=== PATIENT | male | born 1960 | race African-American/Black ===

== ENCOUNTER → 2024-11-12 14:33 | Outpatient (REF) | payer MEDICARE, OTHER, SELFPAY | LOC: PAVMRI 14:33 | PROVIDERS: ATTENDING PHYSICIAN Specialist; FAMILY PHYSICIAN Family Medicine | DX: R97.20 Elevated prostate specific antigen [PSA] (principal) | CPT/HCPCS: 72197; A9575 ==

== ENCOUNTER 2025-04-04 16:52 | Emergency (ER) | payer MEDICARE, OTHER, SELFPAY ==
[2025-04-04 16:59] VITALS: BP 160/106
--- NOTE | 2025-04-04 17:28 | ED.GENMED ---
History of Present Illness
General
Chief Complaint: Urinary Symptoms
Source: patient
Time Seen by Provider: 04/04/25 17:13
History of Present Illness
History of Present Illness:
64-year-old male with a known history of BPH, but does not take medication for presents emergency department with complaints of inability to fully urinate since approximately 4 AM associated with the urge to urinate and bladder fullness. This is
making him uncomfortable. He denies fever, chills, nausea, vomiting, chest pain, shortness of breath, back pain, groin pain. He denies hematuria or dysuria but did notice urgency and frequency starting yesterday. Of note, patient was recently
diagnosed with a sinus infection and took Jenny-[place] severe cold last night, and was taking Mucinex before that. He is also in the midst of a prep for colonoscopy planned for tomorrow which he just canceled. When asked about back pain he notes
mild right sided back discomfort, without exacerbating relieving factors, not abrupt in onset, without radiation. No leg swelling or pain.
Past History
Past History
ED Past Medical History: HTN, Hypercholesterolemia, NIDDM and Other (BPH)
Social History
Tobacco: Non-smoker
Alcohol: None
Drug: None
Personal:
Living: with family
Employment: Employed
Phy Exam
Physical Exam
Physical Exam:
GENERAL: Alert , in no apparent distress
EYE: pupils equal and reactive
NECK: Supple, no significant adenopathy.
ENT: o/p clr, mmm.
CARDIAC: Regular rate and rhythm .
LUNGS: Clear breath sounds bilaterally, no acute respiratory distress, no wheezes/rales/rhonchi
ABDOMEN: Soft, mild suprapubic tenderness, no r/g, no cvat
NEUROLOGICAL: Alert and oriented, no focal neuro deficits
SKIN: Warm and dry, skin intact.
MUSCULOSKELETAL: No edema, well perfused.
PSYCH: Normal and appropriate interaction.
: no bleeding or lesions noted
Course
Orders/Labs/Results
Orders:
Orders
04/04/25 17:28
Bladder Scan- Treatment ONCE
Herron Placement- Treatment ONCE
Reason for insertion: Acute Retention
Tamsulosin [Flomax] 0.4 mg PO NOW STA
US Kidneys and US Bladder [US Renal With Bladder] Urgent
Comment:
Reason For Exam: flank pain, retention
04/04/25 18:22
Urinalysis Reflex To Culture Urgent
Date Specimen was Collected: 04/04/25
Time Specimen was Collected: 17:38
Urine Microscopic Reflex Cult Urgent
Abnormal Lab Results
04/04/25
18:22
Urine Ketones 2+ A
(Negative)
Ur Occult Blood Reflex 4+ A
(Negative)
Urine RBC >100 A /HPF
(0-2)
Urine Albumin (Reflex) 2+ A
(Neg - Trace)
Vital Signs
Initial and Last Documented VS:
Initial Vital Signs
Temp Pulse Resp BP Pulse Ox
98.6 F 86 20 160/106 97
04/04/25 16:59 04/04/25 16:59 04/04/25 16:59 04/04/25 16:59 04/04/25 16:59
Last Documented Vital Signs
Temp Pulse Resp BP Pulse Ox
98.6 F 117 27 161/87 96
04/04/25 16:59 04/04/25 19:15 04/04/25 19:15 04/04/25 19:00 04/04/25 19:15
*Pulse Oximetry
SaO2: 97
Oxygen Mode of Delivery: Room air
Patient hypoxic: no
*Critical Care Note
Total Time (30-74mins, 75-104mins- exclusive of procedures): Not Applicable
Update Note
Update Note:
Patient presents to the Emergency Department with inability to urinate
Number and Complexity of Problems Addressed at the Encounter
� Chronic conditions affecting care:
� Acute Exacerbation and/or Progression of Chronic Illness:
� Differential Diagnosis includes: But not limited to medication effect, BPH effect, UTI, kidney stone, etc. etc.
Amount and/or Complexity of Data to be Reviewed and Analyzed
� I performed an independent evaluation of and my interpretation is:
EKG:
CT:
Xrays:
Laboratory Studies:ua with hematuria, no suggsetion of infx
Other:us Mild asymmetric distention of the right intrarenal collecting system and right renal pelvis.
2. Herron catheter in the urinary bladder.
� Review of other/old records reveals:
� Clinical information was obtained by an independent historian:
� Prescriptions/Medications Considered but not given:
� Further testing considered but not performed:
Risk of Complications and/or Morbidity or Mortality of Patient Management
� Social determinants of health affecting care:
� Discussion with other providers (PCP, Hospitalists, Consultants, etc):
� Escalation of care including admission/observation vs risk of discharge considered: Bladder scan positive for retention, Herron catheter placed, clear urine flowing, patient feels remarkably better without any complaints at this
time. Ultrasound noted with asymmetric distention of the right collecting system and pelvis, this will need follow-up with urology, no stone seen. Patient given copy of this ultrasound report and advised to follow-up with urology concerning
ultrasound, microscopic hematuria, and Herron.
ED Attending Note
-
Portions of this chart may have been created with voice recognition software.� Occasional wrong word or��sound alike� substitutions may have occurred due to the inherent limitations of voice recognition software.
Discharge Plan
Departure
Patient Disposition: Home (Routine Discharge)
Date of Disposition: 04/04/25
Time of Disposition: 20:26
Patient with high blood pressure during this ER visit?: Yes
Condition: Good
Discharge Problem:
Acute urinary retention
Instructions: How to Care for Your Herron Catheter, Male, Blood in the Urine (Hematuria), Adult (DC), Urinary retention (DC), BLOOD PRESSURE
Prescriptions:
New
tamsulosin [Flomax] 0.4 mg capsule
0.4 mg PO DAILY Qty: 30 0RF
No Action
prednisone 10 MG tablet
10 mg PO .TAPER Qty: 30 0RF
Rx Instructions:
Take 88ezh2mble, 99bii9ddyr, 19mgm2tabk, 72frq7sdgo.
Referrals:
Todd Kwon MD [Active, Urology] - Follow up in 2-3 days
Cale Baltazar DO [Family Provider, Family Practice]
Activity Restrictions/Additional Instructions:
YOU SHOULD SEE THE UROLOGIST WITHIN THE NEXT 2 TO 3 DAYS FOR FURTHER MANAGEMENT OF YOUR HERRON CATHETER AND EVALUATION OF YOUR FINDINGS HERE WHICH INCLUDES BLOOD IN YOUR URINE AND INABILITY TO URINATE. IF YOU DEVELOP FEVER, CHILLS, VOMITING,
SWELLING, YOUR CATHETER DOES NOT DRAIN, ABDOMINAL OR PELVIC PAIN, OR OTHER WORRISOME SIGNS, PLEASE RETURN TO THE ER IMMEDIATELY!
Interventions
Interventions:
*Risk Screen - Suicide Last Done: 04/04/25 16:59
*General Assessment Last Done: 04/04/25 16:59
*Neglect/Abuse Screening Last Done: 04/04/25 16:59
*Nursing Disposition Last Done: 04/04/25 21:09
ED-Male Genitourinary Assessment Last Done: 04/04/25 18:01
Discharge Date and Time
Discharge Date/Time: 04/04/25 21:15
Print Language: CROATIAN
[2025-04-04 17:43] VITALS: BP 156/87
[2025-04-04] MEDS: FLOMAX 0.4 MG PO (17:51)
[2025-04-04 18:00] VITALS: BP 161/85
[2025-04-04 18:36] LABS: Urine Character Slightly Cloudy (Clear)
[2025-04-04 18:46] LABS: Urine Red Blood Cell >100 /HPF (0-2); Urine Squamous Cell 0-2 /LPF (Few)
[2025-04-04 18:47] LABS: Urine White Cell 0-2 /HPF (0-5)
[2025-04-04 19:00] VITALS: BP 161/87
== END 2025-04-04 21:15 | disposition home or self-care (01) ==
LOC: EMR 16:52
PROVIDERS: EMERGENCY PHYSICIAN Emergency Medicine; FAMILY PHYSICIAN Family Medicine
DX: N40.1 Benign prostatic hyperplasia with lower urinary tract symptoms (principal); R33.8 Other retention of urine; I10 Essential (primary) hypertension; E78.00 Pure hypercholesterolemia, unspecified; E11.9 Type 2 diabetes mellitus without complications
CPT/HCPCS: 51702; 99284; 76770; 81003; 81015

== ENCOUNTER 2025-04-14 13:30 | Inpatient (IN) | payer MEDICARE, OTHER, SELFPAY ==
[2025-04-13 20:57] VITALS: BP 195/116
--- NOTE | 2025-04-13 22:30 | ED.GENMED ---
History of Present Illness
<MARILOU Waldrop - Last Filed: 04/14/25 01:32>
General
Chief Complaint: Urinary Symptoms
Source: patient
Exam Limitations: none
Time Seen by Provider: 04/13/25 22:19
Nursing documentation reviewed up to this point in time: agreed with
History of Present Illness
History of Present Illness:
Patient is a 64-year-old male who presents to the ER with difficulty voiding. As documented patient has a history of known BPH and was seen here in the ER April 04 requiring catheter. He was seen by urology today and had coppola removed and has not
been able to void normalized since. He was having episodes of incontinence of blood. He is not on blood thinners. Denies any fevers.
Past History
<MARILOU Waldrop - Last Filed: 04/14/25 01:32>
Past History
ED Past Medical History: HTN, Hypercholesterolemia, NIDDM and Other (BPH)
Social History
Tobacco: Non-smoker
Alcohol: None
Drug: None
Personal:
Living: with family
Employment: Employed
Phy Exam
<MARILOU Waldrop - Last Filed: 04/14/25 01:32>
General Physical Exam
General Presentation: no apparent distress
General age: appears stated age
General Skin: warm and dry
General Habitus: normal
General Mental: alert
General Hydration: appears well hydrated
Gastrointestinal Exam
Gastrointestinal Exam: soft and other (Suprapubic tenderness)
Neurological Exam
Neurological Exam: alert and oriented x3
Musculoskeletal Exam
Musculoskeletal Exam: full ROM
Skin Exam
Skin Exam: normal color and warm/dry
Psychiatric Exam
Psychiatric Exam: normal mood/affect
Course
<MARILOU Waldrop - Last Filed: 04/14/25 01:32>
Orders/Labs/Results
Orders:
Orders
04/13/25 21:57
Bladder Scan- Treatment ONCE
04/13/25 22:02
Coppola Placement- Treatment ONCE
Reason for insertion: Acute Retention
04/14/25 00:03
IV Insert/Care/Rem.- Treatment PRN
0.9% Sodium Chloride 1000 ml [Nss] 1,000 ml IV BOLUS
04/14/25 00:15
Complete Blood Count/With Diff Urgent
Comprehensive Metabolic Panel Urgent
Abnormal Lab Results
04/14/25
00:15
WBC 12.0 H 10^3/uL
(4.8-10.8)
RBC 3.57 L 10^6/uL
(4.70-6.10)
Hgb 10.6 L g/dL
(13.0-18.0)
Hct 33.5 L %
(39.0-52.0)
MCHC 31.6 L g/dL
(33.0-37.0)
Abs Immat Gran (auto) 0.2 H 10^3/uL
(0-0.05)
Absolute Neuts (auto) 10.5 H 10^3/uL
(1.4-6.5)
Absolute Lymphs (auto) 0.8 L 10^3/uL
(1.2-3.4)
Immature Gran % 1.8 H %
(0-0.5)
Neutrophils % 87.5 H %
(42.2-75.2)
Lymphocytes % 6.3 L %
(20.5-51.1)
Glucose 225 H mg/dl
(70-99)
04/14/25 00:15
04/14/25 00:15
Vital Signs
Initial and Last Documented VS:
Initial Vital Signs
Temp Pulse Resp BP Pulse Ox
98.5 F 110 16 195/116 97
04/13/25 20:57 04/13/25 20:57 04/13/25 20:57 04/13/25 20:57 04/13/25 20:57
Last Documented Vital Signs
Temp Pulse Resp BP Pulse Ox
98.5 F 88 18 134/75 99
04/13/25 20:57 04/14/25 01:12 04/14/25 01:12 04/14/25 01:12 04/14/25 01:12
Regional Operations Director consulted with Physician
Regional Operations Director consulted with physician?: Yes
Name of Physician Consulted: Tracy
<Dary Molina MD - Last Filed: 04/14/25 01:16>
Orders/Labs/Results
Orders:
Orders
04/13/25 21:57
Bladder Scan- Treatment ONCE
04/13/25 22:02
Coppola Placement- Treatment ONCE
Reason for insertion: Acute Retention
04/14/25 00:03
IV Insert/Care/Rem.- Treatment PRN
0.9% Sodium Chloride 1000 ml [Nss] 1,000 ml IV BOLUS
04/14/25 00:15
Complete Blood Count/With Diff Urgent
Comprehensive Metabolic Panel Urgent
Abnormal Lab Results
04/14/25
00:15
WBC 12.0 H 10^3/uL
(4.8-10.8)
RBC 3.57 L 10^6/uL
(4.70-6.10)
Hgb 10.6 L g/dL
(13.0-18.0)
Hct 33.5 L %
(39.0-52.0)
MCHC 31.6 L g/dL
(33.0-37.0)
Abs Immat Gran (auto) 0.2 H 10^3/uL
(0-0.05)
Absolute Neuts (auto) 10.5 H 10^3/uL
(1.4-6.5)
Absolute Lymphs (auto) 0.8 L 10^3/uL
(1.2-3.4)
Immature Gran % 1.8 H %
(0-0.5)
Neutrophils % 87.5 H %
(42.2-75.2)
Lymphocytes % 6.3 L %
(20.5-51.1)
Glucose 225 H mg/dl
(70-99)
04/14/25 00:15
04/14/25 00:15
Vital Signs
Initial and Last Documented VS:
Initial Vital Signs
Temp Pulse Resp BP Pulse Ox
98.5 F 110 16 195/116 97
04/13/25 20:57 04/13/25 20:57 04/13/25 20:57 04/13/25 20:57 04/13/25 20:57
Last Documented Vital Signs
Temp Pulse Resp BP Pulse Ox
98.5 F 88 18 134/75 99
04/13/25 20:57 04/14/25 01:12 04/14/25 01:12 04/14/25 01:12 04/14/25 01:12
<MARILOU Waldrop - Last Filed: 04/14/25 01:32>
MDM/Problems Addressed
MDM/Problems Addressed:
As documented patient is a 64-year-old male who had Coppola catheter removed by urology today and has not been able to void normally since. He has had episodes of incontinence of blood. Three-way Coppola catheter was inserted with gross hematuria CBI
in progress.
Will require admission. Patient is not on blood thinners hemoglobin 10.6, no prior.
Case reviewed with ER physician who evaluated patient.
pt is afebrile
Chronic conditions affecting care:
niddm
<MARILOU Waldrop - Last Filed: 04/14/25 01:32>
*Pulse Oximetry
SaO2: 98
Oxygen Mode of Delivery: Room air
Patient hypoxic: no
*Critical Care Note
Total Time (30-74mins, 75-104mins- exclusive of procedures): Not Applicable
ED Attending Note
<MARILOU Waldrop - Last Filed: 04/14/25 01:32>
-
Portions of this chart may have been created with voice recognition software.� Occasional wrong word or��sound alike� substitutions may have occurred due to the inherent limitations of voice recognition software.
<Dary Molina MD - Last Filed: 04/14/25 01:16>
ED Attending Note
Patient seen and examined by attending physician: Yes
I performed the substantive portion of visit, reviewed & personally made and approve the management plan that is documented in note by myself or PAVITHRA.: Yes
ED Attending Note:
Patient appears nontoxic and well. He is fully alert and awake. Heart sounds regular lungs are clear. Urine is fruit-punch colored at this time.
Discharge Plan
Departure
Patient Disposition: Admit
Date of Disposition: 04/14/25
Time of Disposition: 01:31
Admit to: Med/Surg
Admit to doctor: hospitalist
Presentation/result/management discussed w/ accepting MD/DO: Hospitalist
Patient with high blood pressure during this ER visit?: Yes
Condition: Fair
Covid-19: Not Applicable
Discharge Problem:
Acute urinary retention, Hematuria
Prescriptions:
No Action
tamsulosin [Flomax] 0.4 mg capsule
0.4 mg PO DAILY Qty: 30 0RF
celecoxib 200 mg Capsule
200 mg PO DAILY
metformin 500 mg Tablet
500 mg PO BID
losartan 100 mg Tablet
100 mg PO DAILY
rosuvastatin 10 mg Tablet
10 mg PO DAILY
Referrals:
Cale Baltazar DO [Family Provider, Family Practice]
Interventions
Interventions:
*Risk Screen - Suicide Last Done: 04/13/25 20:57
*General Assessment Last Done: 04/13/25 21:44
*Neglect/Abuse Screening Last Done: 04/13/25 20:57
*ED- Fall Risk Assessment Last Done: 04/13/25 21:44
*ED COVID-19 Vaccine History Last Done: 04/13/25 21:44
*ED Influenza Vaccine History Last Done: 04/13/25 21:44
ED-Male Genitourinary Assessment Last Done: 04/13/25 21:44
Discharge Date and Time
Print Language: MALDIVIAN
[2025-04-13 23:28] VITALS: BP 179/102
[2025-04-14] VITALS (7 sets, daily range): BP systolic 134–163; BP diastolic 75–92; BMI 28.9
[2025-04-14 00:37] LABS: Hematocrit 33.5 % (39.0-52.0); Hemoglobin 10.6 g/dL (13.0-18.0); Mean Corp Hgb Conc. 31.6 g/dL (33.0-37.0); Mean Corpuscular Volume 93.8 fL (80.0-94.0); Nucleated Red Blood Cells % 0 % (-); Platelet Count 362 10^3/uL (130-400); Red Cell Dist. Width 12.1 % (11.5-14.5)
[2025-04-14 00:42] LABS: ALT (SGPT) 25 U/L (0-50); AST (SGOT) 28 U/L (17-59); Albumin 4.2 g/dl (3.5-5.0); Alkaline Phosphatase 70 U/L (38-126); Blood Urea Nitrogen 12 mg/dl (9-20); Calcium 9.6 mg/dl (8.4-10.2); Carbon Dioxide 27 mmol/L (22-30); Chloride 103 mmol/L (98-107); Estimated Creatinine Clearance 86 ml/min; Glucose 225 mg/dl (70-99); Sodium 139 mmol/L (135-145); Total Protein 7.8 g/dl (6.3-8.2); eGFR > 60.00
[2025-04-14 00:48] LABS: Potassium 4.4 mmol/L (3.5-5.1)
[2025-04-14] MEDS: NSS 1000 IV (01:13)
--- NOTE | 2025-04-14 01:33 | HPS.HSE ---
Family Physician
-
Family Physician: Cale Baltazar
Chief Complaint
-
Difficulty voiding hematuria
History of Present Illness
This 64-year-old with past medical history significant for hypertension, wsy-xedzrbv-jymugzyki diabetes, hyperlipidemia, BPH who presents to the emergency department with difficulty voiding and hematuria.
Patient urinary retention 2 weeks ago and had a urinary catheter placed. Unknown if he had BPH at that time but patient was at URI and was on Z-Alejandro and OTC anticongestive and which likely exacerbated his urinary retention. He was evaluated 1 week
afterwards and the urinary catheter was capped. He was supposed to start Flomax and then the following day have a voiding evaluation. He had a voiding trial on Saturday and was initially able to urinate freely after catheter removal. He returned
to the clinic in the afternoon for follow-up on an ultrasound which shows that the bladder was not entirely emptying. Was then told to coming in the following day for further evaluation. After arriving home he started noticing some hematuria and
then slight back discomfort. He denied any nausea or vomiting. He denied any fevers or chills. He then started noticing some difficulty with urination and then incontinence. Three-way urinary catheter was placed in the emergency department.
He was afebrile with a temp of 98.5 in the ED, blood pressure 130/75 pulse of 88 and he was satting 99% on room air.
White count was 12 hemoglobin 10.6 and platelet of 362. Electrolytes BUN and creatinine are normal.
Medical History
Past Medical History
Past Medical History: Reports HTN, Hypercholesterolemia, NIDDM and Other (BPH, urinary retention)
Past Surgical History: Reports Orthopedic (Right hip arthroplasty)
Social History
Tobacco: Non-smoker
Alcohol: None
Drug: None
Family History
Family History: Not pertinent
Allergies / Home Medications
Allergies reflects when Allergies were last updated in [employer]
Home Medications with original date entered in [employer]
Allergy/Medication List:
Allergies
Allergy/AdvReac Type Severity Reaction Status Date / Time
aspirin Allergy slight Verified 04/04/25 17:03
tremors
Home Medications
tamsulosin 0.4 mg capsule (Flomax) 0.4 mg PO DAILY #30 caps 04/04/25
celecoxib 200 mg capsule 200 mg PO DAILY 04/14/25
losartan 100 mg tablet 100 mg PO DAILY 04/14/25
metformin 500 mg tablet 500 mg PO BID 04/14/25
rosuvastatin 10 mg tablet 10 mg PO DAILY 04/14/25
Review of Systems
-
Constitutional: Reports No Symptoms
EENT: Reports No Symptoms
Respiratory: Reports No Symptoms
Cardiac: Reports No Symptoms
Abdomen/GI: Reports No Symptoms
: Reports Incontinence and Bleeding
Musculoskeletal: Reports No Symptoms
Skin: Reports No Symptoms
Neurological: Reports No Symptoms
Endocrine: Reports No Symptoms
Hematologic/Lymphatic: Reports No Symptoms
Psych: Reports No Symptoms
Physical Exam
Vital Signs
Vital Signs
Temp Pulse Resp BP Pulse Ox
98.5 F 88 18 134/75 99
04/13/25 20:57 04/14/25 01:12 04/14/25 01:12 04/14/25 01:12 04/14/25 01:12
Physical Exam
General: Well Developed, Well Nourished and No Apparent Distress
HEENT: NormoCephalic, Moist mucous membranes and Atraumatic
Respiratory: Clear
Cardiac: S1/S2 and Regular Rhythm; No Murmur or Rub
GI: Soft, Non Tender, Non Distended and Normal Bowel Sounds; No Organomegaly
Rectal: Deferred by Provider
Genito-urinary: Bloody Urine and Continuous Bladder Irrigation
Musculoskeletal: No Clubbing, No Cyanosis and No Edema
Skin: No Rash
Neuro: AO x 3 and Nonfocal/grossly intact
Laboratory Results
-
04/14/25 00:15
04/14/25 00:15
Laboratory Results
Total Bilirubin 0.4 mg/dl (0.2-1.3) 04/14/25 00:15
AST 28 U/L (17-59) 04/14/25 00:15
ALT 25 U/L (0-50) 04/14/25 00:15
Alkaline Phosphatase 70 U/L (38-126) 04/14/25 00:15
Data Reviewed
-
Lab Data: Labs Reviewed by me
Impression/Plan
-
IMPRESSION:
This is a 64-year-old with past medical history significant for hypertension, diabetes and hyperlipidemia who had recent urinary retention in the setting of BPH status post indwelling cath for about 2 weeks, status post voiding trial and catheter
removal today with subsequent difficulty with urination and hematuria. Gross hematuria in the emergency department. He is not obstructed right now. He has abdominal pain. He had a three-way cath placed and he is on CBI.
PLAN:
Hematuria -likely in the setting of indwelling catheter. He is not on any blood thinners. He has no coagulopathy. No history of any bladder cancer or mass.
-Admit to MedSurg
-Continue blood aggregation until clearance
-No blood thinners for now
-Serial examination for retention
- trend h/h
- d/w urology, Urine is clearing. Can d/c CBI, leave coppola and d/c to follow up urology in clinic today if stable.
- Continue tamsulosin
Diabetes�stable
-Continue metformin
-Sliding scale insulin
Hypertension
-continue losartan
Hyperlipidemia
-Continue rosuvastatin
DVT prophylaxis�SCDs
CODE STATUS�full code
--- NOTE | 2025-04-14 06:24 | PTCARENOTE ---
0245-received pt from ED with CBI infusing with #3 up. coppola draining punch colored urine with small clots noted. pt and oriented to room, POC and call lara. SCD's placed on pt. admission assessment completed.
[2025-04-14 07:24] LABS: Hematocrit 30.8 % (39.0-52.0); Hemoglobin 9.7 g/dL (13.0-18.0); Mean Corp Hgb Conc. 31.5 g/dL (33.0-37.0); Mean Corpuscular Volume 93.1 fL (80.0-94.0); Platelet Count 342 10^3/uL (130-400); Red Cell Dist. Width 12.2 % (11.5-14.5)
[2025-04-14 07:44] LABS: Blood Urea Nitrogen 11 mg/dl (9-20); Calcium 9.5 mg/dl (8.4-10.2); Carbon Dioxide 28 mmol/L (22-30); Chloride 104 mmol/L (98-107); Estimated Creatinine Clearance 86 ml/min; Glucose 131 mg/dl (70-99); Potassium 4.6 mmol/L (3.5-5.1); Sodium 139 mmol/L (135-145); eGFR > 60.00
[2025-04-14] MEDS: CRESTOR 10 MG PO (08:25)
[2025-04-14] MEDS: COZAAR 100 MG PO (08:25)
[2025-04-14] MEDS: FLOMAX 0.4 MG PO (08:25)
[2025-04-14] MEDS: CELEBREX 200 MG PO (08:26)
[2025-04-14] MEDS: GLUCOPHAGE 500 MG PO ×2 (08:39→20:14)
--- NOTE | 2025-04-14 11:40 | CM ---
CM reviewed chart, patient seen bedside with , initial assessment completed.
Patient is a 64-year-old male who presents to the ER with difficulty voiding.
Patient resides with his in a multiple story home, three steps to enter.
Patient is independent with ADLS/IADLS, denies use of DME.
Patient has had VN in past after hip replacement, denies SNF hx.
PCP Cale Baltazar, Pharmacy [facility], has coverage through [place].
OBS form reviewed verbally, provided with copy, placed in chart.
CM will continue to follow for all d/c planning needs.
Plan; home with , no needs anticipated
--- NOTE | 2025-04-14 13:46 | W.PN.HOSP.TC ---
Today's Communication/Plan
-
Continuous bladder irrigation
Assessment / Plan
Assessment / Plan
Impression
This is a 64-year-old with past medical history significant for hypertension, diabetes and hyperlipidemia who had recent urinary retention in the setting of BPH status post indwelling cath for about 2 weeks, status post voiding trial and catheter
removal today with subsequent difficulty with urination and hematuria. Gross hematuria in the emergency department. He is not obstructed right now. He has abdominal pain. He had a three-way cath placed and he is on CBI.
Hematuria
BPH with bladder outlet obstruction
Hematuria likely secondary to Salas catheter trauma
Patient is not on any antiplatelet or anticoagulation prior to admission.
Continue CBI.
Monitor closely for possible infection (show noted elevated white count)
Continue Flomax
Diabetes�stable
-Continue metformin
-Sliding scale insulin
Hypertension
-continue losartan
Hyperlipidemia
-Continue rosuvastatin
Anticipated Discharge: 24 - 48 hours
Subjective/Interval History
-
Date of Service: April 14, 2025
Objective Data
-
Labs:
Laboratory Results
04/14/25
06:49
WBC 13.5 H
Hgb 9.7 L
Hct 30.8 L
Plt Count 342
Sodium 139
Potassium 4.6
Chloride 104
Carbon Dioxide 28
BUN 11
Creatinine 0.9
Glucose 131 H
Calcium 9.5
Vital Signs:
Vital Signs
Temp Pulse Resp BP Pulse Ox
98.1 F 93 16 153/90 98
04/14/25 07:25 04/14/25 07:25 04/14/25 07:25 04/14/25 07:25 04/14/25 07:25
I&O
04/13/25 04/14/25 04/15/25
06:59 06:59 06:59
Output Total 3049 / 305
Balance -3050 / -3049
Physical Exam
-
General: Well Developed and No Apparent Distress
HEENT: Normocephalic, Atraumatic and Moist Mucous Membranes
Respiratory: Clear to Auscultation
Cardiac: Regular Rhythm and S1/S2; Negative Murmur, Rub or Gallop
GI: Soft, Nontender, Nondistended and Normal Bowel Sounds; Negative Organomegaly
Rectal: Deferred by Provider
Genito-urinary: Salas (Three-way Salas CBI with red-colored urine)
Musculoskeletal: No Clubbing, No Cyanosis and No Edema
Skin: Negative Rash
Neuro: Nonfocal/Grossly Intact
--- NOTE | 2025-04-14 17:52 | W.PN.URO.CBU ---
Today's Communication / Plan
-
change to 24 fr or [address] irrigate prn clots
Assessment / Plan
-
bph retention now hematuria will replace to larger cath to get blood clots out continue cbi
Diagnosis
-
Date of Service: April 14, 2025
-
Patient Diagnosis:
bph with tretention from massive size of t but now hematuria with clots no prior h/o hematuria befor e coppola placed with retention
Post Op Day:
Subjective
-
comfoertable
Objective
-
Vital Signs
Temp Pulse Resp BP Pulse Ox
99.1 F 109 16 150/83 97
04/14/25 15:25 04/14/25 15:25 04/14/25 15:25 04/14/25 15:25 04/14/25 15:25
Intake and Output
04/13/25 04/14/25 04/15/25
06:59 06:59 06:59
Intake Total 600 / 600
Output Total 3050 / 3050
Balance -3050 / -3050 600 / 600
Intake:
Oral fluids 600 / 600
Output:
Urine, Coppola 725 / 725
True Urine Output from CBI 2324 / 5
Laboratory Results
04/14/25 06:49
04/14/25 06:49
Review of Systems
-
: Difficulty Voiding and Bleeding
Physical Exam
-
General - well developed, well nourished, no acute distress
Chest - clear bilaterally
Abdomen - soft, non-tender, positive bowel sounds, no CVAT, no incisional pain or distention
Genitalia - normal
Rectal - normalhuge prostae
Skin - warm & dry with no rash
Neuro - AOx3, no motor deficits
Extremities - no clubbing, no cyanosis, no edema
Incision - clean, dry
Dressing - clean, dry, intact
Care Review
Data Reviewed
Discussed with: Hospitalist and Nursing
[2025-04-14] MEDS: TRANEXAMIC ACID 100 IV (18:13)
[2025-04-14 21:06] LABS: Glucose - Point of Care 213 mg/dl (70-99)
[2025-04-15 07:25] VITALS: BP 158/89
[2025-04-15] MEDS: FLOMAX 0.4 MG PO (08:14)
[2025-04-15] MEDS: COZAAR 100 MG PO (08:14)
[2025-04-15] MEDS: CRESTOR 10 MG PO (08:14)
[2025-04-15] MEDS: GLUCOPHAGE 500 MG PO (08:14)
[2025-04-15] MEDS: CELEBREX 200 MG PO (08:14)
--- NOTE | 2025-04-15 10:26 | W.PN.URO.CBU ---
Today's Communication / Plan
-
disconnect cbi encourage oob if no major clots then d/c
Assessment / Plan
-
bph retention now hematuria has susided will stop cbi obserev but if no major bleed home on finastride poiut parit cysto
Diagnosis
-
Date of Service: April 15, 2025
-
Patient Diagnosis:
Post Op Day:
Patient Diagnosis:
bph with tretention from massive size of t but now hematuria with clots no prior h/o hematuria befor e coppola placed with retention
Post Op Day:
Subjective
-
no bleeding
Objective
-
Vital Signs
Temp Pulse Resp BP Pulse Ox
98.6 F 103 16 158/89 96
04/15/25 07:25 04/15/25 08:14 04/15/25 07:25 04/15/25 08:14 04/15/25 07:25
Intake and Output
04/14/25 04/15/25 04/16/25
06:59 06:59 06:59
Intake Total 1560 / 1560
Output Total 3050 / 3050 3650 / 3650
Balance -3050 / -3050 -2089 / -2089
Intake:
Oral fluids 1560 / 1560
Output:
Urine, Coppola 725 / 725
True Urine Output from CBI 2325 / 2325 3650 / 3650
True urine output from hand 0 / 0
irrigation
Laboratory Results
04/14/25 06:49
04/14/25 06:49
Review of Systems
-
: Difficulty Voiding
Physical Exam
-
General - well developed, well nourished, no acute distress
Chest - clear bilaterally
Abdomen - soft, non-tender, positive bowel sounds, no CVAT, no incisional pain or distention
Genitalia - normal
Rectal - normal
Skin - warm & dry with no rash
Neuro - AOx3, no motor deficits
Extremities - no clubbing, no cyanosis, no edema
Incision - clean, dry
Dressing - clean, dry, intact
Counseling
-
teacj=-h leg bag coppola
Care Review
Data Reviewed
Discussed with: Hospitalist, Nursing and Family
--- NOTE | 2025-04-15 10:41 | TRANSFER ---
CBI on hold per nephrology. Patient to walk around. If bleeding starts, CBI to be resumed.
--- NOTE | 2025-04-15 12:59 | W.DS.TRANS ---
DC Summary - Computer Console Operator
-
Discharge Instructions:
Discharge Diagnosis/Procedures Hematuria with retention
Diet Regular
Instructions:
Stand-Alone Forms:
Changes to Home Medications: Yes
Discharge Medications:
DC Medications w/original date entered in [facility]
tamsulosin 0.4 mg capsule (Flomax) 0.4 mg PO DAILY #30 caps 04/04/25
celecoxib 200 mg capsule 200 mg PO DAILY Pain 04/14/25
losartan 100 mg tablet 100 mg PO DAILY Blood Pressure 04/14/25
metformin 500 mg tablet 500 mg PO BID Diabetes 04/14/25
rosuvastatin 10 mg tablet 10 mg PO DAILY High Cholesterol 04/14/25
finasteride 5 mg tablet 5 mg PO DAILY #30 tabs 04/15/25
Home Medication Changes
Proscar started
Pending Results: No
--- NOTE | 2025-04-15 13:07 | CM ---
CM reviewed chart, patient seen bedside with .
Discussed patient upgraded to inpatient status.
Patient for d/c today- denies needs.
Patient has transport home.
Plan; home no needs.
[2025-04-15 13:34] VITALS: BP 154/86
--- NOTE | 2025-04-15 13:52 | PTCARENOTE ---
Patient discharged to home. IV removed. 3 way Coppola maintained--third port plugged. Leg bag placed. Patient and educated on Coppola care. Hand out instructions printed for coppola catheter care at home. All patient belongings accounted for. Patient
ambulated to main lobby with accompaniment of .
== END 2025-04-15 14:21 | disposition home or self-care (01) | DRG 921 ==
LOC: 4 WEST ACU 13:30
PROVIDERS: Nurse Practitioner; ADMITTING PHYSICIAN Internal Medicine; ATTENDING PHYSICIAN Internal Medicine; CONSULT PHYSICIAN Specialist; EMERGENCY PHYSICIAN Emergency Medicine; FAMILY PHYSICIAN Family Medicine
DX: N99.820 Postprocedural hemorrhage of a genitourinary system organ or structure following a genitourinary system procedure (principal); R31.0 Gross hematuria; N40.1 Benign prostatic hyperplasia with lower urinary tract symptoms; R33.8 Other retention of urine; I10 Essential (primary) hypertension; E11.9 Type 2 diabetes mellitus without complications; Z96.641 Presence of right artificial hip joint; E66.9 Obesity, unspecified; E78.00 Pure hypercholesterolemia, unspecified; Z68.28 Body mass index [BMI] 28.0-28.9, adult; Y73.2 Prosthetic and other implants, materials and accessory gastroenterology and urology devices associated with adverse incidents; Y84.6 Urinary catheterization as the cause of abnormal reaction of the patient, or of later complication, without mention of misadventure at the time of the procedure
CPT/HCPCS: 51702; 51798; 80048; 80053; 82962; 85025; 85027; 96360; 99285